=== PATIENT | female | born 1990 | race Caucasian/White ===

== ENCOUNTER 2017-05-13 20:03 | Emergency (ER) | payer MEDICAID ==
[2017-05-13 20:30] VITALS: RESP 16; TEMP 98.7
[2017-05-13 21:13] LABS: RBC URINE < 1 /hpf (0-3); URINE BACTERIA RARE (<OCC); URINE BILIRUBIN NEGATIVE (NEGATIVE); URINE BLOOD NEGATIVE (NEGATIVE); URINE COLOR Yellow (YELLOW); URINE GLUCOSE (UA) NORMAL (Normal); URINE KETONE NEGATIVE (NEGATIVE); URINE PROTEIN NEGATIVE (NEGATIVE); URINE UROBILINOGEN NORMAL mg/dL (0.2-1.0); WBC URINE < 1 /hpf (0-5)
[2017-05-13 21:28] LABS: URINE LEUKOCYTE ESTERASE NEGATIVE Leu/uL (Negative)
[2017-05-13 21:36] LABS: BASO # 0.1 K/uL (0.0-0.2); BASO % 0.5 % (0.0-2.0); EOS % 0.1 % (0.0-4.0); HEMATOCRIT 36.2 % (34.0-47.0); LYMPH # 2.7 K/uL (1.0-4.3); LYMPH % 20.9 % (20.0-40.0); MEAN CORPUSCULAR HEMOGLOBIN 29.4 pg (27.0-31.0); MEAN CORPUSCULAR HGB CONC 33.1 g/dL (33.0-37.0); MEAN PLATELET VOLUME 8.6 fL (7.2-11.7); MONO % 7.9 % (0.0-10.0)
--- NOTE | 2017-05-13 21:39 | C.PDOC ---
History Of Present Illness 26 y/o female LMP 04/04 reports (+) test at home, complains of lower abdominal pain x3 days. Pain is sharp, constant and worse today. She also reports small amount of spotting yesterday. Pt taking tylenol for pain. No US performed as of yet. Denies fever, vomiting or any other complaints. Time Seen by Provider: 05/13/17 20:58 Chief Complaint (Nursing): Abdominal Pain History Per: Patient History/Exam Limitations: no limitations Onset/Duration Of Symptoms: Days Current Symptoms Are (Timing): Worse Severity: Moderate Location Of Pain/Discomfort: RLQ, LLQ Radiation Of Pain To:: None Quality Of Discomfort: Sharp Associated Symptoms: denies: Fever, Chills, Nausea, Vomiting Exacerbating Factors: None Alleviating Factors: None Recent travel outside of the [place]: No Abnormal Vaginal Bleeding: Yes Last Menstral Period: 04/04 Past Medical History Reviewed: Historical Data, Nursing Documentation, Vital Signs Vital Signs: Last Vital Signs Temp 98.7 F 05/13/17 20:27 Pulse 92 H 05/13/17 20:27 Resp 16 05/13/17 20:27 BP 117/74 05/13/17 20:27 Pulse Ox 100 05/13/17 22:18 Family History: States: Unknown Family Hx - Social History Hx Tobacco Use: No Hx Alcohol Use: No Hx Substance Use: No - Immunization History Hx Tetanus Toxoid Vaccination: No Hx Influenza Vaccination: No Hx Pneumococcal Vaccination: No Review Of Systems Except As Marked, All Systems Reviewed And Found Negative. Constitutional: Negative for: Fever, Chills Gastrointestinal: Positive for: Abdominal Pain. Negative for: Nausea, Vomiting Genitourinary: Positive for: Vaginal Bleeding (spotting) Physical Exam - Physical Exam Additional Physical Exam Comments: Constitutional: No acute distress. Head: Normocephalic. Atraumatic. Neck: Supple. Cardiovascular: Regular rate. Radial pulse 2+ bilaterally. Chest: No tenderness. Respiratory: Clear to auscultation bilaterally. GI: Soft. Suprapubic tenderness. Nondistended. Back: No CVA tenderness. Musculoskeletal: No tenderness or swelling of extremities. Skin: No rash. Neurologic: Alert, no focal deficit. ED Course And Treatment - Laboratory Results Result Diagrams: 05/13/17 21:28 05/13/17 21:28 O2 Sat by Pulse Oximetry: 100 (room air) Pulse Ox Interpretation: Normal Medical Decision Making Medical Decision Making: Plan: * labs * UA * US transvaginal Advised patient to take vitamins and to follow up with OBGYN outpatient. Transvaginal US FINDINGS: Gestation: Single live intrauterine gestation. heart rate of [address] [place]-rump length of 1.45 cm, correlating with gestational age of 7 weeks 6 days. Uterus/cervix: 1.3 x 0.6 x 1.1 cm collection along gestational sac. No cervical dilatation or effacement. Cervical length = 3.2 cm. Ovaries: Normal ovaries. No adnexal masses. Free fluid: No significant free fluid. IMPRESSION: 1. Single live intrauterine gestation. 2. Subchorionic hemorrhage. 3. Incidental/non-acute findings are described above. Will discharge home, f/u OBGYN, return for worsening pain, vomiting, fever. Disposition - Disposition Disposition: HOME/ ROUTINE Disposition Time: 23:00 Condition: STABLE Instructions: Subchorionic Hemorrhage (ED) - Clinical Impression Clinical Impression: Subchorionic hemorrhage - Scribe Statement The provider has reviewed the documentation as recorded by the Jerrod Dutton Provider Attestation: All medical record entries made by the Naziaibalison were at my direction and personally dictated by me. I have reviewed the chart and agree that the record accurately reflects my personal performance of the history, physical exam, medical decision making, and the department course for this patient. I have also personally directed, reviewed, and agree with the discharge instructions and disposition.
[2017-05-13 21:48] LABS: CHLORIDE 103 mmol/L (98-107); SODIUM 135 mmol/L (132-148)
[2017-05-13 21:51] LABS: ALB/GLOB RATIO 1.2 (1.0-2.1); ALKALINE PHOSPHATASE 88 U/L (38-126); ALT/SGPT 19 U/L (9-52); AST/SGOT 19 U/L (14-36); BILIRUBIN,TOTAL 0.5 mg/dL (0.2-1.3); BLOOD UREA NITROGEN 9 mg/dL (7-17); CARBON DIOXIDE 23 mmol/L (22-30); GFR AFRICAN-AMERICAN > 60; GLUCOSE,RANDOM 87 mg/dL (65-105); TOTAL PROTEIN 7.2 g/dL (6.3-8.3)
[2017-05-13 21:52] LABS: CALCIUM 9.2 mg/dl (8.6-10.4)
--- NOTE | 2017-05-13 22:13 | US ---
EXAM: US First Trimester, Transabdominal CLINICAL HISTORY: 26 years old, female; Pain; complicated by abdominal or pelvic pain; Other: None specified; Gestational age or lmp: 04/04/2017; ; Additional info: Abd pain/bleeding, , assess cervix TECHNIQUE: Real-time transabdominal obstetrical ultrasound of the maternal pelvis and a first trimester with image documentation. COMPARISON: No relevant prior studies available. FINDINGS: Gestation: Single live intrauterine gestation. heart rate of 154 beats per minute. [place]-rump length of 1.45 cm, correlating with gestational age of 7 weeks 6 days. Uterus/cervix: 1.3 x 0.6 x 1.1 cm collection along gestational sac. No cervical dilatation or effacement. Cervical length = 3.2 cm. Ovaries: Normal ovaries. No adnexal masses. Free fluid: No significant free fluid. IMPRESSION: 1. Single live intrauterine gestation. 2. Subchorionic hemorrhage. 3. Incidental/non-acute findings are described above.
[2017-05-14 00:01] VITALS: BP 125/74; PULSE 70; O2SAT 99
== END 2017-05-13 23:59 | disposition home or self-care (01) ==
LOC: C.ER 20:03
DX: O46.8X1 Other antepartum hemorrhage, first trimester (principal); Z3A.01 Less than 8 weeks gestation of pregnancy

== ENCOUNTER 2018-03-22 09:46 | Emergency (ER) | payer OTHER, MEDICAID ==
[2018-03-22 10:00] VITALS: O2SAT 100
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
[2018-03-22 11:42] VITALS: BP 101/67; PULSE 73; RESP 18; TEMP 97.6
== END 2018-03-22 11:43 | disposition home or self-care (01) ==
LOC: C.ER 09:46
DX: M54.2 Cervicalgia (principal); M62.838 Other muscle spasm
CPT/HCPCS: 96372; 99284; J1885